=== PATIENT | female | born 1995 | race Caucasian/White ===

== ENCOUNTER 2018-06-05 03:05 | Emergency (ER) | payer OTHER ==
[2018-06-05] MEDS ORDERED: FAMOTIDINE 20 MG TAB PO ONE (04:20)
[2018-06-05] MEDS ORDERED: MAG HYDROX/AL HYDROX/SIMETH 30 ML UDCUP PO ONE (04:20)
[2018-06-05] MEDS ORDERED: HYOSCYAMINE SULFATE 0.125 MG TAB PO ONE (04:20)
[2018-06-05] MEDS ORDERED: LIDOCAINE 2% VISCOUS 15 ML UDCUP PO ONE (04:20)
--- NOTE | 2018-06-05 04:22 | EDPHY ---
H & P Stated Complaint: abd pain, diarhhea, dark stools Time Seen by Provider: 06/05/18 04:12 HPI/ROS: HPI The patient presents with abdominal pain, nausea, diarrhea for the last 1 day. Symptoms started slowly and have gotten progressively worse. They are moderate in severity. The pain is throughout her abdomen and is achy in nature though mostly in the epigastrium. She did have a dark stool after taking Pepto-Bismol which resolved.. REVIEW OF SYSTEMS 10 systems were reviewed and negative with the exception of the elements mentioned in the history of present illness. PMHx: History of bipolar disorder and anxiety Soc Hx: Here with her partner PHYSICAL General Appearance: Alert, no distress Eyes: Pupils equal and round no pallor or injection ENT, Mouth: Mucous membranes moist Respiratory: There are no retractions, lungs are clear to auscultation Cardiovascular: Regular rate and rhythm Gastrointestinal: Abdomen is soft and non-tender, no masses, bowel sounds normal Neurological: A&O, moves all extremities Skin: Warm and dry, no rashes Musculoskeletal: Neck is supple non tender Extremities: symmetrical, full range of motion Psychiatric: Patient is oriented X 3, there is no agitation Source: Patient Exam Limitations: No limitations - Personal History LMP (Females 10-55): 15-21 Days Ago Current Tetanus Diphtheria and Acellular Pertussis (TDAP): Yes - Medical/Surgical History Hx Asthma: No Hx Chronic Respiratory Disease: No Hx Diabetes: No Hx Cardiac Disease: No Hx Renal Disease: No Hx Cirrhosis: No Hx Alcoholism: No Hx HIV/AIDS: No Hx Splenectomy or Spleen Trauma: No Other PMH: anxiety, bipolar - Social History Smoking Status: Former smoker Constitutional: Initial Vital Signs Temperature (C) 36.9 C 06/05/18 03:10 Heart Rate 84 06/05/18 03:10 Respiratory Rate 20 06/05/18 03:10 Blood Pressure 140/93 H 06/05/18 03:10 O2 Sat (%) 97 06/05/18 03:10 O2 Delivery Mode Room Air Allergies/Adverse Reactions: amoxicillin Allergy (Verified 06/05/18 03:09) Home Medications: Medication Instructions Recorded Ativan 06/05/18 Famotidine [Pepcid 20 MG (*)] 20 mg PO BID #30 tab 06/05/18 LaMICtal 06/05/18 Seroquel 06/05/18 Medical Decision Making Differential Diagnosis: 23-year-old female with history of anxiety and bipolar disorder presents with epigastric abdominal pain upon awakening associated with diarrhea. Transient dark stools in the setting of Pepto-Bismol use. Differential diagnosis includes gastritis, gastroenteritis, esophagitis. In the emergency department, patient was given GI cocktail and famotidine. EKG was obtained and was unremarkable. Patient on reassessment felt much better. She was discharged with instructions for gastritis. - Data Points Medications Given: Discontinued Medications Al Hydroxide/Mg Hydroxide (Maalox Susp) 30 ml PO ONCE ONE Stop: 06/05/18 04:21 Last Admin: 06/05/18 04:35 Dose: 30 ml Famotidine (Pepcid) 20 mg PO EDNOW ONE Stop: 06/05/18 04:21 Last Admin: 06/05/18 04:35 Dose: 20 mg Hyoscyamine Sulfate (Levsin, Hyomax-Sl) 0.25 mg PO ONCE ONE Stop: 06/05/18 04:21 Last Admin: 06/05/18 04:35 Dose: 0.25 mg Lidocaine (Lidocaine 2% Viscous) 15 ml PO ONCE ONE Stop: 06/05/18 04:21 Last Admin: 06/05/18 04:35 Dose: 15 ml Departure - Departure Disposition: Home, Routine, Self-Care Clinical Impression: Epigastric abdominal pain Condition: Good Instructions: Gastritis (ED), Diet for Stomach Ulcers and Gastritis (ED) Additional Instructions: I recommend you have a bland diet. If your symptoms continue for more than a few days and are not better with the medication, I recommend you follow up with your primary care doctor. Return to the emergency department if your worse in any way. Referrals: Yue Harris, RN, MAINTENANCE DIRECTOR [Primary Care Provider] - As per Instructions Prescriptions: Famotidine [Pepcid 20 MG (*)] 20 mg PO BID #30 tab
[2018-06-05 05:37] VITALS: BP 112/73
--- NOTE | 2018-06-05 08:17 | CPEKG ---
Test Reason : OPEN Blood Pressure : / mmHG Vent. Rate : 050 BPM Atrial Rate : 050 BPM P-R Int : 157 ms QRS Dur : 097 ms QT Int : 425 ms P-R-T Axes : 076 070 044 degrees QTc Int : 388 ms Sinus rhythm Confirmed by Bijal Colvin ([id number]) on 06/05/2018 8:16:24 AM Referred By: Confirmed By:Bijal Colvin
== END 2018-06-05 05:48 | disposition home or self-care (01) ==
DX: R10.13 Epigastric pain (principal); R11.0 Nausea; R19.7 Diarrhea, unspecified; Z87.891 Personal history of nicotine dependence